=== PATIENT | female | born 1940 | race Caucasian/White ===

== ENCOUNTER 2018-03-15 14:40 | Outpatient (CLI) | payer MEDICARE, BC ==
--- NOTE | 2018-03-15 16:33 | MRI ---
BRAIN MRI NONCONTRAST: Date; 03/15/18 No prior imaging for comparison. CLINICAL HISTORY: Cognitive impairment. FINDINGS: There is a moderate degree of global atrophy, which does result in compensatory dilatation of ventric ular system. Mild chronic microvascular ischemic disease is present within the cerebral white matter. There is an extra-axial heterogeneous mass with internal susceptibility. A slight degree of adjacent vasogenic edema does involve the mildly displaced medial left frontal lobe. There is an additional, smaller extra-axial density at the right anterior interhemispheric falx overlying the anterior right frontal lobe. These findings are incompletely assessed by noncontrast MRI imaging. There are patent f low-voids seen at the skull base. No acute territorial infarction. IMPRESSION: 1. Probable meningiomas of the anterior cranial fossae, bilaterally, although incompletely assessed. A component of calcification likely involves the larger, left parafalcine mass. Recommend follow-up with noncontrast head CT to evaluate for calcific component, as well as follow-up contrast enhanced b rain MRI. 2. Moderate global atrophy. 3. Mild chronic microvascular ischemic disease. POS: [facility]
== END 2018-03-15 14:41 | disposition home or self-care (01) ==
LOC: SCSMRI 14:40
PROVIDERS: ATTEND Psychiatry & Neurology Neurology
DX: G31.84 Mild cognitive impairment of uncertain or unknown etiology (principal); G93.9 Disorder of brain, unspecified
CPT/HCPCS: 70551

== ENCOUNTER 2018-07-12 12:25 | Outpatient (CLI) | payer MEDICARE, BC ==
--- NOTE | 2018-07-12 14:47 | CT ---
CT BRAIN WITHOUT CONTRAST: Comparison: MRI brain, 03-15-18 History: Abnormal MRI. Technique: Multiple contiguous axial images were obtained in a CT of the brain without contrast. FINDINGS: There is 2.4 cm mass along the left aspect of the frontal falx consistent with a meningioma. There is a smaller 0.6 cm mass along the right aspect of the anterior falx which also likely represents a men ingioma. There is no evidence of hydrocephalus, intracranial hemorrhage, or extraaxial fluid collecti on. The calvarium and overlying soft tissues are unremarkable. The visualized paranasal sinuses and masto id air cells are well aerated. IMPRESSION: No evidence of acute intracranial abnormality. POS: [facility]
--- NOTE | 2018-07-12 15:17 | MRI ---
CONTRAST ENHANCED MRI IMAGES OF BRAIN: DATE: 07/12/2018. COMPARISON: Comparison is made to previous exam on 03/15/2018. FINDINGS: Multiplanar, multisequence pre- and postcontrast-enhanced MRI images brain obtained. Images demonstrate a 1.7 x 2.8 x 1.9 cm left parafalcine anterior durally enhancing mass compatible w ith a meningioma. The lesion appears to have an adjacent smaller right-sided 2nd parafalcine sinus e nhancing region also compatible with a meningioma. This measures approximately 9 mm in the right par afalcine region. No evidence of areas of diffusion restriction seen. No other intracranial mass lesion seen. The ventricles are of normal size. IMPRESSION: Left parafalcine and smaller right parafalcine dural-based lesions compatible with meningiomas. The right-sided smaller lesion does abut the anterior aspect of the right sagittal sinus. POS: [facility]
== END 2018-07-12 12:26 | disposition home or self-care (01) ==
LOC: SCSMRI 12:25
PROVIDERS: ATTEND Family Medicine
DX: R90.89 Other abnormal findings on diagnostic imaging of central nervous system (principal); G93.9 Disorder of brain, unspecified; J34.89 Other specified disorders of nose and nasal sinuses
CPT/HCPCS: 70450; 70553; 82565